=== PATIENT | male | born 1990 | race Caucasian/White ===

== ENCOUNTER 2018-09-18 22:10 | Emergency (ER) | payer OTHER ==
[~2018-09-18] VITALS: Ht 185.4 cm; Wt 75.0 kg
[2018-09-18 22:11] VITALS: BP 130/80
[2018-09-18] MEDS ORDERED: predniSONE 20 MG TAB PO ONE (22:45)
[2018-09-18] MEDS ORDERED: diphenhydrAMINE 25 MG CAP PO ONE (22:45)
[2018-09-18] MEDS ORDERED: PRED20TA PO (23:01)
[2018-09-18] MEDS ORDERED: TRAM50TA2 PO (23:01)
[2018-09-18] MEDS ORDERED: BENA25CA4 PO (23:02)
== END 2018-09-18 23:09 | disposition home or self-care (01) ==
LOC: M ED 22:10
DX: L23.9 Allergic contact dermatitis, unspecified cause (principal); Z72.0 Tobacco use

== ENCOUNTER 2018-10-01 17:26 | Emergency (ER) | payer OTHER ==
[~2018-10-01] VITALS: Ht 185.4 cm; Wt 72.7 kg
[~2018-10-01 17:26] MED LIST: BENA25CA4 PO; PRED20TA PO; TRAM50TA2 PO
[2018-10-01] MEDS ORDERED: ANUS25SU PR (20:47)
[2018-10-01 21:00] VITALS: BP 139/78
== END 2018-10-01 21:01 | disposition home or self-care (01) ==
LOC: M ED 17:26
DX: K62.89 Other specified diseases of anus and rectum (principal); F17.210 Nicotine dependence, cigarettes, uncomplicated

== ENCOUNTER → 2020-04-23 | Outpatient (REF) | payer OTHER ==
[~2020-04-23] MED LIST changes: +ANUS25SU PR
== END ==
LOC: M LAB REF 14:34
PROVIDERS: ATTEND Physician Assistant
DX: Z20.828 Contact with and (suspected) exposure to other viral communicable diseases (principal)

== ENCOUNTER → 2021-03-23 | Outpatient (CLI) | payer OTHER ==
[~2021-03-23] MED LIST changes: +ISOVUE-300 61% 50ML VIAL As Ordered ONE; +LIDOCAINE 1% MDV 20ML VIAL As Ordered ONE; +PROHANCE 279.3MG/ML 5ML VIAL As Ordered ONE
--- NOTE | 2021-03-23 09:48 | REP ---
INDICATION: PAIN IN LT SHOULDER. COMPARISON: None. TECHNIQUE: Pre and post contrast 3T MRI of the left shoulder with MRI arthrogram was performed utilizing various sequences. The glenohumeral injection was performed by Heber SYKES FINDINGS: The pre injection portion examination shows mild to moderate hypertrophic degenerative change seen involving the acromioclavicular joint. The acromion process is type 3. Patchy and linear T2 hyper signal is seen throughout the supraspinatus tendon without evidence of musculotendinous retraction or muscular atrophy. The subscapularis, infraspinatus, teres minor tendons are within normal limits. The biceps tendon resides within the bicipital groove. There is no evidence of coracohumeral or coracoacromial ligamentous thickening. There is a small amount of fluid superficial to the supraspinatus tendon with fluid in the subcoracoid recess. There is no glenohumeral joint effusion. The post injection portion examination shows linear hyper signal in the superior labrum. None of the injected fluid has migrated superior to the supraspinatus tendon. The glenohumeral ligaments are intact IMPRESSION: 1. Supraspinatus tendinitis/tendinosis. 2. 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 3. Likely sublabral foramen rather than a labral tear, however, it is often difficult to discern one from the other. This needs to be correlated clinically. <Electronically signed by Ananda Arguello > 03/23/21 0971
--- NOTE | 2021-03-23 12:30 | REP ---
INDICATION: PAIN IN LT SHOULDER. COMPARISON: None TECHNIQUE: The procedure was performed by MONY Daley, under the direct supervision of Dr. Venegas. The benefits and risks of the procedure were explained to the patient, and an informed consent was obtained. Directly prior to the start of the procedure, a formal time-out was completed in the procedure room. The left shoulder joint space was localized using fluoroscopic guidance. The skin was prepped and draped in a sterile fashion. Approximately 5 mL of 1% Lidocaine 10 mg/ml was used as a local anesthetic. Using fluoroscopic guidance, a #22 gauge spinal needle was inserted and advanced into the left shoulder joint space. Approximately 2 mL of Isovue 300 was injected to verify placement. Ten mL of a solution containing 20 mL of sterile saline and 0.15 mL of ProHance was injected into the joint space. The needle was removed and the patient was taken to MRI for post procedural imaging. FINDINGS: The patient tolerated the procedure well and there were no immediate complications. IMPRESSION: Technically successful left shoulder arthrogram with MRI imaging to follow. 0.1 minutes of fluoroscopy time was utilized for this procedure. Some fluoroscopic images are performed with last image hold technology. These images require no additional radiation. <Electronically signed by Judy Rosado > 03/23/21 1033 <Electronically signed by Tevin Venegas > 03/23/21 1222
== END ==
LOC: M RADPRO 06:26
PROVIDERS: ATTEND Physician Assistant Surgical
DX: M75.82 Other shoulder lesions, left shoulder (principal); M19.012 Primary osteoarthritis, left shoulder; M25.512 Pain in left shoulder
CPT/HCPCS: 23350; 73223; 77002; A9576; Q9967